=== PATIENT | male | born 1985 | race African-American/Black ===

== ENCOUNTER 2019-12-19 23:06 | Emergency (ER) | payer SELFPAY ==
[~2019-12-19] VITALS: Ht 170.2 cm; Wt 90.0 kg
[2019-12-19 23:12] VITALS: BP 146/98
== END 2019-12-20 01:52 | disposition left against medical advice (07) ==
LOC: ER 23:06
DX: R10.9 Unspecified abdominal pain (principal); Z53.21 Procedure and treatment not carried out due to patient leaving prior to being seen by health care provider